=== PATIENT | female | born 1960 ===

== ENCOUNTER 2023-09-01 11:41 | Day surgery (SDC) | payer OTHER ==
[~2023-09-01] VITALS: Ht 152.4 cm; Wt 67.1 kg
[2023-09-01] MEDS ORDERED: MIDAZOLAM 5 MG/5 ML VIAL ONE (15:28)
[2023-09-01] MEDS ORDERED: fentaNYL citrate 0.05 MG/ML VIAL ONE (15:28)
[2023-09-01] MEDS ORDERED: LIDOCAINE 2% 100 MG/5 ML UJET TP ONE ×2 (15:29→17:05)
[2023-09-01] MEDS ORDERED: MIDAZOLAM 2 MG/2 ML VIAL IV ONE (17:05)
[2023-09-01] MEDS ORDERED: fentaNYL citrate 0.05 MG/ML VIAL IVP ONE (17:05)
== END 2023-09-01 17:23 | disposition home or self-care (01) ==
LOC: MDS 11:41 → MMU 13:07 → MDS 17:23
PROVIDERS: ATTEND Internal Medicine Gastroenterology
DX: K62.5 Hemorrhage of anus and rectum (principal); K57.30 Diverticulosis of large intestine without perforation or abscess without bleeding; K21.9 Gastro-esophageal reflux disease without esophagitis; I10 Essential (primary) hypertension; Z80.0 Family history of malignant neoplasm of digestive organs; Z79.899 Other long term (current) drug therapy
CPT/HCPCS: 36415; 43239; 45378; 86677; J2250; J3010; J7030